=== PATIENT | male | born 1970 | race Hispanic/Latino ===

== ENCOUNTER 2025-01-20 14:18 | Emergency (ER) | payer BC ==
[~2025-01-20] VITALS: Ht 172.7 cm; Wt 86.6 kg
--- NOTE | 2025-01-20 15:13 | EKG ---
[facility] Test Date: 2025-01-20 Test Time: 15:11:04 Pat Name: ZENON POSADAS Department: ED Room: Gender: M Managed Care Director: [id number] : 1970 Requested By: DILMA REYES Order Number: [id number] Reading MD: Sly Reed Measurements Intervals [place] Rate: 106 P: 42 PA: 141 QRS: 6 QRSD: 81 T: 56 QT: 328 QTc: 437 Interpretive Statements Sinus tachycardia Nonspecific T abnormalities, lateral leads No previous ECG available for comparison Electronically Signed On 01-20-2025 16:05:46 [employer] by Sly Reed Please click the below link to view image of tracing.
[2025-01-20 16:08] LABS: BASOPHILS # (AUTO) 0.04 K/uL (0.00-0.20); BASOPHILS % (AUTO) 0.6 % (0.0-5.0); EOSINOPHILS # (AUTO) 0.09 K/uL (0.00-0.70); EOSINOPHILS % (AUTO) 1.4 % (0.0-8.0); HEMATOCRIT 55.1 % (42-54); IMMATURE GRANULOCYTE ABSOLUTE 0.03 K/uL (0-1); LYMPHOCYTES # (AUTO) 1.4 K/uL (1.0-4.8); LYMPHOCYTES % (AUTO) 21.7 % (21.0-51.0); MEAN CORPUSCULAR HEMOGLOBIN 29.5 pg (27.0-33.0); MEAN CORPUSCULAR HGB CONC 33.6 g/dL (32.0-36.0); MEAN CORPUSCULAR VOLUME 87.9 fL (79-99); MONOCYTES # (AUTO) 0.4 K/uL (0.1-1.0); MONOCYTES % (AUTO) 6.7 % (3.0-13.0); NEUTROPHILS # (AUTO) 4.4 K/uL (1.8-7.7); NEUTROPHILS % (AUTO) 69.1 % (40.0-77.0); PLATELET COUNT (AUTO) 294 K/uL (130-400); RED BLOOD CELL COUNT(AUTO) 6.27 MIL/uL (4.50-6.20); RED CELL DISTRIBUTION WIDTH 13.3 % (11.0-15.5); WHITE BLOOD COUNT (AUTO) 6.3 K/uL (4.8-10.8)
[2025-01-20 16:18] LABS: CREATININE 0.9 mg/dL (0.5-1.3); POTASSIUM 4.3 mmol/L (3.5-5.1)
--- NOTE | 2025-01-20 17:22 | ERN ---
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 Patient also mentioned he had been experiencing right hand numbness for the past three days, but denies any chest pain, headache, SOB or any other associated symptoms at this time. Patient mentioned he had a systolic blood pressure reading of 175 at home. Patient also states he has not been taking his prescribed medication. Allergies: Coded Allergies: No Known Allergies (Unverified Allergy, Unknown, 01/20/25) Past Medical History Past Medical History: Anxiety, Depression, Diverticulitis, High Cholesterol, Hypertension Additional Past Medical Hx: NON COMPLIANT W/ MEDS. RT SHOULDER PAIN Surgical History: Other Surgical History Other: KNEE, COLON RESECTION Review of System Dictation Constitutional: Positive for HTN Negative for fever,chills, and weight loss Eyes: Negative for injury, pain,redness, and discharge ENT: Negative for injury,pain or swelling Cardiovascular: Negative for chest pain, palpitations, and edema Respiratory: Negative for shortness of breath, cough, and wheezing, Abdomen/GI: Negative for abdominal pain, nausea, vomiting, diarrhea, and constipation Back: Negative for injury and pain : Negative for injury, bleeding and discharge MS/Extremity: Positive for right hand numbness Negative for injury and deformity Skin: Negative for rash, and discoloration Neuro: Negative for headache, weakness, numbness, tingling, and seizure Psych: Negative for suicide ideation, homicidal ideation, and hallucinations Initial Vital Sign VS Vital Signs Date Time Temp Pulse Resp B/P (MAP) Pulse Ox O2 Delivery O2 Flow Rate FiO2 01/20/25 14:20 97.9 114 16 158/97 98 Room Air 0 01/20/25 17:52 21 Physical Exam Dictation General: awake, alert, NAD Head/Face: Normocephalic, atraumatic Eyes: PERRL, EOMI, vision at baseline ENT: oral cavity clear, TMs clear, no signs of infection Neck: Trachea midline, supple, no nuchal rigidity Cardiovascular: Tachycardia, No MRGs, no JVD Respiratory: CTAB, no respiratory distress, No rales or wheezes Abdomen: Soft, non-tender, non-distended, normal bowel sounds, no guarding or rebound. Skin: Warm, dry, normal turgor, no rash MS/Extremity: Pulses equal, no cyanosis, neurovascular intact, FROM Neuro: COAx4, GCS 15, strength 5/5, CN 2-12 intact, normal cerebellar exam, normal gait, Psych: Normal behavior, mood, and affect normal Results (Laboratory/Radiology) Laboratory/Radiology Laboratory Tests Test 01/20/25 15:19 White Blood Count 6.3 K/uL (4.8-10.8) Red Blood Count 6.27 MIL/uL (4.50-6.20) H Hemoglobin 18.5 g/dL (14.0-18.0) H Hematocrit 55.1 % (42-54) H Mean Corpuscular Volume 87.9 fL (79-99) Mean Corpuscular Hemoglobin 29.5 pg (27.0-33.0) Mean Corpuscular Hemoglobin Concent 33.6 g/dL (32.0-36.0) Red Cell Distribution Width 13.3 % (11.0-15.5) Platelet Count 294 K/uL (130-400) Mean Platelet Volume 9.8 fL (7.5-10.5) Immature Granulocyte % (Auto) 0.5 % (0-1) Neutrophils (%) (Auto) 69.1 % (40.0-77.0) Lymphocytes (%) (Auto) 21.7 % (21.0-51.0) Monocytes (%) (Auto) 6.7 % (3.0-13.0) Eosinophils (%) (Auto) 1.4 % (0.0-8.0) Basophils (%) (Auto) 0.6 % (0.0-5.0) Neutrophils # (Auto) 4.4 K/uL (1.8-7.7) Lymphocytes # (Auto) 1.4 K/uL (1.0-4.8) Monocytes # (Auto) 0.4 K/uL (0.1-1.0) Eosinophils # (Auto) 0.09 K/uL (0.00-0.70) Basophils # (Auto) 0.04 K/uL (0.00-0.20) Absolute Immature Granulocyte (auto 0.03 K/uL (0-1) Nucleated Red Blood Cells 0.0 % (0.0-0.19) Sodium Level 141 mmol/L (136-145) Potassium Level 4.3 mmol/L (3.5-5.1) Chloride Level 104 mmol/L (101-111) Carbon Dioxide Level 35 mmol/L (21-32) H Blood Urea Nitrogen 17 mg/dL (7-18) Creatinine 0.9 mg/dL (0.5-1.3) Glomerular Filtration Rate Calc 101 mL/min (>90) Random Glucose 113 mg/dL (70-105) H Total Calcium 9.7 mg/dL (8.5-10.1) Troponin I High Sensitivity 11 ng/L (4-75) Labs Reviewed?: Yes EKG Comment: EKG 01/20/2025 time 3:11 p.m. ventricular rate 106, IL 141, QRS D 81, QT 328. Sinus tachycardia, nonspecific T abnormalities, lateral leads. No STEMI ED Course ED Course Orders Procedure Category Date Status Time 12 Lead Ekg Tracing- EKG 01/20/25 Resulted Technical 15:01 Cbc With Differential LAB 01/20/25 Complete 15:01 Basic Metabolic Panel LAB 01/20/25 Complete 15:01 Troponin I High LAB 01/20/25 Complete Sensitivity 15:01 Amlodipine 5 Mg Tab PHA 01/20/25 Complete (Norvasc 5mg Tab) 15:30 Current Medications Medications (Trade) Dose Ordered Sig/Christian Route PRN Reason Start Time Stop Time Status Last Admin Dose Admin Amlodipine Besylate (NorvASC 5MG TAB) 5 mg ONCE ONCE PO 01/20/25 15:30 01/20/25 15:31 DC 01/20/25 17:51 Vital Signs Date Time Temp Pulse Resp B/P (MAP) Pulse Ox O2 Delivery O2 Flow Rate FiO2 01/20/25 17:52 97.7 77 18 161/104 98 Room Air* 0 21 01/20/25 14:20 97.9 114 16 158/97 98 Room Air 0 Medical Decision Making MDM MDM: Differential diagnosis: HTN, noncompliant Risk of complication and/or morbidity or mortality of patient management: None Medications-Per medication reconciliation Need for hospitalization: Patient does not meet criteria for hospitalization. Need for emergency major/minor surgery: No There are no social concerns with this patient. Prescription drug management Prescriptions will include symptomatic care I independently interpreted the test that were performed, results were reviewed by me and considered findings on radiology if ordered. DX & DISP Disposition: Discharge Departure Impression: Primary Impression: Hypertension Condition: Stable Referrals: JEFFREY NAYLOR NP (PCP) DILMA REYES MD Jan 20, 2025 17:22
[2025-01-20] MEDS: amLODIPine 5 MG TAB PO ONE (17:51)
--- NOTE | 2025-01-20 17:56 | NUR ---
PT REPORTS HIS BP HAS BEEN HIGH AT HOME SINCE MONDAY DESPITE HOME MEDICATION
[2025-01-20 18:30] VITALS: BP 148/90; PULSE 77; RESP 18; TEMP 97.7; O2SAT 98
== END 2025-01-20 18:30 | disposition home or self-care (01) ==
LOC: EDH 14:18
DX: I10 Essential (primary) hypertension (principal); E78.00 Pure hypercholesterolemia, unspecified; F41.9 Anxiety disorder, unspecified; F32.A Depression, unspecified
CPT/HCPCS: 36415; 80048; 84484; 85025; 93005; 99284